=== PATIENT | female | born 1965 | race Caucasian/White ===

== ENCOUNTER 2018-07-25 12:02 | Observation (INO) ==
--- NOTE | 2018-07-25 12:47 | Emergency Department Note ---
Disposition Clinical Impression: Common bile duct dilatation Abdominal pain Qualifiers: Abdominal location: right upper quadrant Qualified Code(s): R10.11 - Right upper quadrant pain Disposition: Admitted As Inpatient Condition: Good Abdominal Pain HPI - General Chief Complaint: ED Abdominal Pain Stated Complaint: gallbladder issues Time Seen by Provider: 07/25/18 12:10 Source: patient, family Mode of arrival: ambulatory Limitations: no limitations Vital Signs Reviewed: Yes - History of Present Illness HPI Narrative: Ms. Desir is a 53yof w. hx of gastric bypass surgery presenting to ED c/o RUQ/epigastric pain. pt reports she started having epigastic/RUQ pain that wrapped around to her R flank last Wednesday (07/20) a/w epigastric bloating, nausea, increased flatulence, and some loose, leigh/shabazz-colored stools. she reports that she was seen at [facility] on Monday 07/23 and had a non-diagnostic CT scan of her abd, was recommended to have a RUQ ultrasound for better visualization of the liver/gallbladder. she notes while she was in bed last night she had some chest pressure that radiated to her L jaw with an increase in nausea and some "claminess," denies SOB or palpitations, says this pain lasted about 10min and then she fell asleep, says that she is having some pain in her L scapular area now. Pt Subjective Complaint: abdominal pain Onset (ago): day(s) (5) Consistency: constant, Worsening Location: RUQ, epigastric, R flank Pain Severity: moderate Pain Scale: 4 Quality: cramping, sharp Radiation: R flank Improves with: nothing Worsens with: eating Associated symptoms: Reports: nausea, diarrhea, chills, constipation. Denies: vomiting, fever, dysuria, hematochezia, melena, hematuria Treatments prior to arrival: other (phenergan suppository) - Related Data Home Medications Medication Instructions Recorded Confirmed Bupropion HCl [Wellbutrin Xl] 300 mg PO DAILY 07/25/18 07/25/18 Escitalopram [Lexapro] 20 mg PO DAILY 07/25/18 07/25/18 Levofloxacin [Levaquin] 750 mg PO DAILY 07/25/18 07/25/18 Montelukast [Singulair] 10 mg PO DAILY 07/25/18 07/25/18 OxyCODONE/APAP 5/325 [Percocet 1 each PO Q6HR PRN 07/25/18 07/25/18 5/325 MG] Promethazine HCl [Phenadoz] 25 mg RC TID PRN 07/25/18 07/25/18 Propranolol [Inderal] 20 mg PO DAILY PRN 07/25/18 07/25/18 clonazePAM [Clonazepam] 1 mg PO HS 07/25/18 07/25/18 Allergies Allergy/AdvReac Type Severity Reaction Status Date / Time clarithromycin [From Biaxin] Allergy Rash Verified 07/25/18 09:57 Review of Systems: As Per HPI Constitutional: Reports: other (claminess). Denies: fever Cardiovascular: Reports: chest pain (pressure x 10min). Denies: palpitations, dyspnea on exertion Respiratory: Denies: cough, dyspnea, wheezes Gastrointestinal: Reports: abdominal pain, nausea, diarrhea (acholic), constipation, other (belching, flatulence). Denies: vomiting Genitourinary: Denies: urgency, dysuria, frequency, hematuria Musculoskeletal: Reports: other (L scapular pain) Integumentary: Denies: rash, lesions Neurological: Reports: headache. 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 Psychiatric history: Reports: depression - Social History Smoking status: Light tobacco smoker Alcohol use: Reports: occasionally Drug use: Reports: none Physical Exam - General General appearance: alert Course Vital Signs Temperature 97.5 F L 07/25/18 12:07 Pulse Rate 87 07/25/18 12:07 Respiratory Rate 18 07/25/18 12:07 Blood Pressure 139/79 07/25/18 12:07 O2 Sat by Pulse Oximetry 98 07/25/18 12:07 Temperature 98.2 F 07/26/18 06:37 Pulse Rate 55 07/26/18 06:37 Respiratory Rate 15 07/26/18 06:37 Blood Pressure 98/64 07/26/18 06:37 O2 Sat by Pulse Oximetry 98 07/26/18 06:37 Oxygen Delivery Oxygen Delivery Room Air Abdominal Pain - Lab Data Result diagrams: 07/26/18 04:35 07/26/18 04:35 Lab Results 07/25/18 07/25/18 07/25/18 Range/Units 12:25 12:57 12:57 WBC 7.8 (4.3-11.1) K/mcL RBC 4.92 (3.82-4.97) M/mcL Hgb 15.3 (11.5-15.4) g/dL Hct 46.6 H (35.3-44.9) % MCV 94.7 (83.0-100.0) fL MCH 31.1 (28.0-33.3) pg MCHC 32.8 (31.6-35.5) g/dL RDW 12.4 (11.5-14.5) % Plt Count 255 (140-400) K/mcL MPV 10.5 (9.4-12.4) fL Immature Gran % 0.3 (0-4) % Seg Neutrophils % 72.2 % Lymphocytes % 17.5 % Monocytes % 7.6 % Eosinophils % 1.9 % Basophils % 0.5 % Neutrophils # 5.6 (1.6-8.9) K/mcL Lymphocytes # 1.4 (0.6-4.6) K/mcL Monocytes # 0.6 (0.0-1.3) K/mcL Eosinophils # 0.2 (0.0-0.6) K/mcL Basophils # 0.0 (0.0-0.2) K/mcL Sodium 140 (136-145) mEq/L Potassium 3.4 L (3.5-5.1) mEq/L Chloride 106 (98-107) mEq/L Carbon Dioxide 28 (23-29) mEq/L BUN 10 (6-20) mg/dL Creatinine 0.68 (0.60-1.20) mg/dL Est GFR ( Amer) > 60 (> 60) Est GFR (Non-Af Amer) > 60 (> 60) BUN/Creatinine Ratio 15 (6-26) Glucose 80 (70-105) mg/dL Calculated Osmolality 288 (280-300) Calcium 9.8 (8.6-10.3) mg/dL Total Bilirubin 0.4 (0.3-1.0) mg/dL Direct Bilirubin 0.1 (0.0-0.2) mg/dL Indirect Bilirubin 0.3 (0.0-1.2) mg/dL AST 20 (13-39) Units/L ALT 17 (7-52) Units/L Alkaline Phosphatase 71 (34-104) Units/L Serum Total Protein 7.1 (6.4-8.9) g/dL Albumin 4.4 (3.5-5.7) g/dL Globulin 2.7 (2.4-3.5) g/dL Albumin/Globulin Ratio 1.6 (1.1-2.2) Lipase 28 (11-82) Units/L Urine Color Yellow (Yellow) Urine Clarity Cloudy A (Clear) Urine pH 6.0 (5.0-8.0) pH Units Ur Specific [place] 1.024 (1.010-1.025) Urine Protein Negative (Neg-Trace) mg/dL Urine Glucose (UA) Normal (Normal) mg/dL Urine Ketones Trace H (Negative) mg/dL Urine Blood Negative (Negative) Urine Nitrite Negative (Negative) Urine Bilirubin Negative (Negative) Urine Urobilinogen Normal (Normal) mg/dL Ur Leukocyte Esterase Moderate H (Negative) Urine Microscopic RBC 3-5 H (0-3) per hpf Urine Microscopic WBC 15-30 H (0-3) per hpf Ur Squamous Epith Cells Many H (None-Few) per lpf Urine Bacteria None Seen (None-Few) per hpf Hyaline Casts None Seen (None-Few) per lpf Ur Culture Indicated? NO. A (NO)
[2018-07-25] MEDS ORDERED: 0.9 % Sodium Chloride 1,000 ML IVC ONE (13:16)
[2018-07-25] MEDS ORDERED: Ondansetron 4 MG/2 ML VIAL IVP ONE (13:16)
[2018-07-25] MEDS ORDERED: Hyoscyamine 0.5 MG/ML MLS IVP ONE (13:25)
--- NOTE | 2018-07-25 13:28 | Emergency Department Note ---
Disposition Clinical Impression: Common bile duct dilatation Abdominal pain Qualifiers: Abdominal location: right upper quadrant Qualified Code(s): R10.11 - Right upper quadrant pain Disposition: Admitted As Inpatient Condition: Good Time of Disposition: 16:08 Abdominal Pain HPI - General Chief Complaint: ED Abdominal Pain Stated Complaint: gallbladder issues Time Seen by Provider: 07/25/18 12:10 Source: patient Mode of arrival: ambulatory Limitations: no limitations Nursing Notes Reviewed: Yes Vital Signs Reviewed: Yes - History of Present Illness HPI Narrative: 53-year-old female persists for evaluation of "gallbladder issues". Patient states that she has had pain for the past 4 days. Notes to be in epigastrium as well as right upper quadrant with some radiation to the back. States she does work at [employer] and was evaluated in the ED and had a CAT scan. Patient states that her symptoms are not improved. She notes pain that does correlate postprandial. Denies any fevers. Notes some nausea without vomiting. Describes some diarrhea with some acholic stools. Patient denies any urinary symptoms. Patient does have a history of gastric bypass. Pt Subjective Complaint: abdominal pain Location: RUQ, epigastric, R flank Pain Severity: moderate Pain Scale: 4 Quality: cramping, sharp Improves with: nothing Worsens with: eating Associated symptoms: Reports: nausea, diarrhea, chills, constipation. Denies: vomiting, fever, dysuria, hematochezia, melena, hematuria - Related Data Allergies Allergy/AdvReac Type Severity Reaction Status Date / Time clarithromycin [From Biaxin] Allergy Rash Verified 07/25/18 09:57 All systems ED: reviewed and negative except as stated. Constitutional: Denies: fever Cardiovascular: Denies: chest pain Respiratory: Denies: cough, dyspnea Gastrointestinal: Reports: abdominal pain, nausea, diarrhea. 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 Psychiatric history: Reports: depression - Social History Smoking status: Light tobacco smoker Alcohol use: Reports: occasionally Drug use: Reports: none Physical Exam - General Limitations: no limitations General appearance: alert, in no apparent distress - Head Head exam: atraumatic, normocephalic, normal inspection - Eye Eye exam: Present: normal appearance, PERRL, EOMI - ENT ENT exam: normal exam, normal oropharynx, mucous membranes moist - Neck Neck exam: Present: normal inspection - Chest Chest inspection: Present: normal inspection, symmetric chest wall rise - Respiratory Respiratory exam: Present: normal lung sounds bilaterally. Absent: respiratory distress - Cardiovascular Cardiovascular exam: Present: regular rate, normal rhythm. Absent: systolic murmur - Abdominal Exam Abdominal exam: Present: soft, tenderness (Right upper quadrant tenderness without rebound.) - Extremities Exam Extremities exam: Present: normal inspection. Absent: pedal edema - Expanded Lower Extremity Exam Neurovascular/Tendon exam: Present: normal capillary refill - Back Exam Back exam: Present: normal inspection - Neurological Exam Neurological exam: Present: alert, oriented X3, CN II-XII intact - Skin Skin exam: Present: warm, dry, intact, normal color Course Course Narrative: Patient seen and examined. Patient will become her ultrasound and abdominal labs. Symptomatic treatment. Disposition pending. - Reevaluation(s) Reevaluation #1: Patient was updated on plan of care. Given the patient's dilated common bile duct patient would likely need an additional testing including an MRI. We will page the GI doctor regarding this patient's findings. Time: 15:59 - Consultations Consultation #1: Spoke with GI and consult was placed. Time: 16:08 Vital Signs Temperature 97.5 F L 07/25/18 12:07 Pulse Rate 87 07/25/18 12:07 Respiratory Rate 18 07/25/18 12:07 Blood Pressure 139/79 07/25/18 12:07 O2 Sat by Pulse Oximetry 98 07/25/18 12:07 Temperature 97.5 F L 07/25/18 12:07 Pulse Rate 87 07/25/18 12:07 Respiratory Rate 18 07/25/18 12:07 Blood Pressure 139/79 07/25/18 12:07 O2 Sat by Pulse Oximetry 98 07/25/18 12:07 Oxygen Delivery Oxygen Delivery Room Air Abdominal Pain - MDM Narrative Medical decision making narrative: Patient presents for biliary colic. Patient had gallbladder findings concerning for choledocholithiasis. Patient's labs are clinically unremarkable. Given the patient's ultrasound findings the patient will likely need additional evaluation and will be admitted to the hospitalist service with GI consult. Patient was updated on this plan of care. Patient was requiring escalating doses of pain medicine. Patient would likely need additional evaluation to ensure there is no signs of obstruction. MRI was aware an MRCP was ordered in the ED however they said it would take several hours before they would be able to complete the study. - Lab Data Lab results reviewed: Yes I reviewed the patient's lab results. Result diagrams: 07/25/18 12:57 07/25/18 12:57 Lab Results 07/25/18 07/25/18 07/25/18 Range/Units 12:25 12:57 12:57 WBC 7.8 (4.3-11.1) K/mcL RBC 4.92 (3.82-4.97) M/mcL Hgb 15.3 (11.5-15.4) g/dL Hct 46.6 H (35.3-44.9) % MCV 94.7 (83.0-100.0) fL MCH 31.1 (28.0-33.3) pg MCHC 32.8 (31.6-35.5) g/dL RDW 12.4 (11.5-14.5) % Plt Count 255 (140-400) K/mcL MPV 10.5 (9.4-12.4) fL Immature Gran % 0.3 (0-4) % Seg Neutrophils % 72.2 % Lymphocytes % 17.5 % Monocytes % 7.6 % Eosinophils % 1.9 % Basophils % 0.5 % Neutrophils # 5.6 (1.6-8.9) K/mcL Lymphocytes # 1.4 (0.6-4.6) K/mcL Monocytes # 0.6 (0.0-1.3) K/mcL Eosinophils # 0.2 (0.0-0.6) K/mcL Basophils # 0.0 (0.0-0.2) K/mcL Sodium 140 (136-145) mEq/L Potassium 3.4 L (3.5-5.1) mEq/L Chloride 106 (98-107) mEq/L Carbon Dioxide 28 (23-29) mEq/L BUN 10 (6-20) mg/dL Creatinine 0.68 (0.60-1.20) mg/dL Est GFR ( Amer) > 60 (> 60) Est GFR (Non-Af Amer) > 60 (> 60) BUN/Creatinine Ratio 15 (6-26) Glucose 80 (70-105) mg/dL Calculated Osmolality 288 (280-300) Calcium 9.8 (8.6-10.3) mg/dL Total Bilirubin 0.4 (0.3-1.0) mg/dL Direct Bilirubin 0.1 (0.0-0.2) mg/dL Indirect Bilirubin 0.3 (0.0-1.2) mg/dL AST 20 (13-39) Units/L ALT 17 (7-52) Units/L Alkaline Phosphatase 71 (34-104) Units/L Serum Total Protein 7.1 (6.4-8.9) g/dL Albumin 4.4 (3.5-5.7) g/dL Globulin 2.7 (2.4-3.5) g/dL Albumin/Globulin Ratio 1.6 (1.1-2.2) Lipase 28 (11-82) Units/L Urine Color Yellow (Yellow) Urine Clarity Cloudy A (Clear) Urine pH 6.0 (5.0-8.0) pH Units Ur Specific [place] 1.024 (1.010-1.025) Urine Protein Negative (Neg-Trace) mg/dL Urine Glucose (UA) Normal (Normal) mg/dL Urine Ketones Trace H (Negative) mg/dL Urine Blood Negative (Negative) Urine Nitrite Negative (Negative) Urine Bilirubin Negative (Negative) Urine Urobilinogen Normal (Normal) mg/dL Ur Leukocyte Esterase Moderate H (Negative) Urine Microscopic RBC 3-5 H (0-3) per hpf Urine Microscopic WBC 15-30 H (0-3) per hpf Ur Squamous Epith Cells Many H (None-Few) per lpf Urine Bacteria None Seen (None-Few) per hpf Hyaline Casts None Seen (None-Few) per lpf Ur Culture Indicated? NO. A (NO) - Radiology Data Radiology results reviewed: Yes I reviewed the patient's radiology results. Gallbladder Ultrasound 07/25/18 13:17 IMPRESSION: Hepatomegaly with mild increased echotexture which may be related to hepatic steatosis. Mildly distended common bile duct measuring 8 mm. If any clinical concern for choledocholithiasis or biliary obstruction, this would be best assessed in a noninvasive fashion with MRCP. D/ / Jhonny Lester MD / Jhonny Lester MD Interpreting Provider: Jhonny Lester MD - EKG Data EKG attestation: Yes I reviewed and interpreted this EKG. EKG shows normal: sinus rhythm Rate: normal Rhythm: NSR [place]/QRS: normal T wave inversions noted in: aVR, v1 Interpretation: no acute changes, nonspecific ST-T wave changes [facility] - [place] Situation: Demographics Background: Presenting Complaint Assessment: Vital Signs, Course and respsone to treatment, Patient/Family Expectation Recommendation: Barrier(s) to disposition, Recommendation based on pending stud ies, treatments, or consults [facility] Report Given to: Dr. Peg Baeza Repor Time: 15:59 Attestation Statement - Attestation Attestation: I examined this patient and my medical decision-making was reviewed with the Resident Physician. I agree with the documented findings, disposition and treatment plan as described except to the extent set forth below. Findings consistent with possible dysfunctional gallbladder. There was findings of dilated common bile duct. We will obtain MRCP, admit for pain control and GI consultation. Patient may require HIDA scan if MRCP is negative in conjunction with gastroenterology consultation. Non-peritoneal abdominal examination at time of admission
[2018-07-25 13:32] LABS: Bilirubin,Urine Negative (Negative); Blood,Urine Negative (Negative); Clarity,Urine Cloudy (Clear); Color,Urine Yellow (Yellow); Glucose,Urine (UA) Normal (Normal); Ketones,Urine Trace mg/dL (Negative); Leukocyte Esterase,Urine Moderate (Negative); Nitrite,Urine Negative (Negative); Protein,Urine Negative (Neg-Trace); Specific Gravity,Urine 1.024 (1.010-1.025); Urobilinogen,Urine Normal (Normal)
[2018-07-25 13:34] LABS: Basophils % 0.5 %; Eosinophils # 0.2 K/mcL (0.0-0.6); Eosinophils % 1.9 %; Hematocrit 46.6 % (35.3-44.9); Hemoglobin 15.3 g/dL (11.5-15.4); Immature Granulocytes % 0.3 % (0-4); Lymphocytes # 1.4 K/mcL (0.6-4.6); Lymphocytes % 17.5 %; Mean Corpuscular HGB Conc 32.8 g/dL (31.6-35.5); Mean Corpuscular Hemoglobin 31.1 pg (28.0-33.3); Mean Corpuscular Volume 94.7 fL (83.0-100.0); Mean Platelet Volume 10.5 fL (9.4-12.4); Monocytes # 0.6 K/mcL (0.0-1.3); Monocytes % 7.6 %; Neutrophils # 5.6 K/mcL (1.6-8.9); Platelet Count 255 K/mcL (140-400); Red Blood Count 4.92 M/mcL (3.82-4.97); Red Cell Distribution Width 12.4 % (11.5-14.5); Segmented Neutrophils % 72.2 %
[2018-07-25 13:36] LABS: Bacteria,Urine None Seen per hpf (None-Few); Hyaline Casts,Urine None Seen per lpf (None-Few); Squamous Epithelial Cell,Urine Many per lpf (None-Few); WBC,Urine 15-30 per hpf (0-3)
[2018-07-25 13:48] LABS: Alanine Aminotransferase 17 Units/L (7-52); Albumin 4.4 g/dL (3.5-5.7); Albumin/Globulin Ratio 1.6 (1.1-2.2); Alkaline Phosphatase 71 Units/L (34-104); Aspartate Amino Transferase 20 Units/L (13-39); BUN/Creatinine Ratio 15 (6-26); Bilirubin,Direct 0.1 mg/dL (0.0-0.2); Bilirubin,Indirect 0.3 mg/dL (0.0-1.2); Bilirubin,Total 0.4 mg/dL (0.3-1.0); Blood Urea Nitrogen 10 mg/dL (6-20); Calcium 9.8 mg/dL (8.6-10.3); Carbon Dioxide 28 mEq/L (23-29); Chloride 106 mEq/L (98-107); Globulin 2.7 g/dL (2.4-3.5); Glucose 80 mg/dL (70-105); Lipase 28 Units/L (11-82); Osmolality,Calculated 288 (280-300); Potassium 3.4 mEq/L (3.5-5.1); Sodium 140 mEq/L (136-145); Total Protein 7.1 g/dL (6.4-8.9); eGFR For Non-African Americans > 60 (> 60)
[2018-07-25] MEDS ORDERED: 0.9 % Sodium Chloride 1,000 ML IVC SCH (16:00)
[2018-07-25] MEDS ORDERED: *HR* FentaNYL (PF) 100 MCG/2 ML VIAL IVP ONE (16:07)
--- NOTE | 2018-07-25 17:13 | Internal Med History&Physical ---
<Tenzin Ford - Last Filed: 07/25/18 17:52> Date of Encounter: 07/25/18 Time of Encounter: 17:04 Internal Medicine - H&P: HPI Chief complaint: Epigastric / RUQ pain Admitted From: Home Plans for Post Hospital Care: Home History of present illness: Ms. Desir is a 53 year old female with PMHx gastric bypass surgery (2004), anxiety, migraines, chronic sinusitis who presents with epigastric/ RUQ abdomina l pain for the past 5 days. States that she has pain in her gallbladder. Notes pain is worse immediately after meals, and resolves when she does not eat. Pain rated 8-9/10 at worst, and described as sharp, stabbing pain that she feels in her RUQ of her abdomen and radiates around her back. Associated with nausea, bloating, and a few episodes of loose, light-colored stools. Pain intensified as of two days ago, so much so that she began to take her percocet (normally used for migraines) to alleviate abdominal pain. 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 ER at [place] noted she may have an 'inflamed gallbladder with distended duct.' Recommended follow-up with ultrasound, which pt was unable to complete. Pain has persisted until today. Currently notes abdominal pain that radiates around the right side to the back, and left shoulder pain behind the shoulder blade. Associated with nausea, and worsened by eating or drinking anything. Managed with percocet for pain and phenergan for nausea to this point. Denies fevers/chills, dizziness, lightheadedness, headache, chest pain, SOB, vomiting, diarrhea, dysuria, hematuria. Vitals stable in the ED CBC: wnl CMP: wnl Lipase: wnl UA: benign U/S Gallbladder: Mildly distended common bile duct - 8mm; Hepatomegaly with mild increased echotexture EKG: NSR with nonspecific ST-T wave changes Past Med Surg Social Fam HX - Past Medical History Attestation: Yes The following information was validated with the patient. Source: patient Medical history: migraine Additional medical history: sinus surgery due to chronic sinusitis Psychiatric history: anxiety, depression - Past Surgical History Additional surgical history: septum, gastric bypass, rt knee scope, tubal d&c, tonsillectomy and adenoidectomy, csection x 2 - Social History Smoking Status: Light tobacco smoker Smokeless Tobacco Status: No Alcohol use: occasionally Drug use: none Occupational status: employed Internal Medicine - H&P: Meds Bupropion HCl [Wellbutrin Xl] 300 mg PO DAILY 07/25/18 [History] Escitalopram [Lexapro] 20 mg PO DAILY 07/25/18 [History] Levofloxacin [Levaquin] 750 mg PO DAILY 07/25/18 [History] Montelukast [Singulair] 10 mg PO DAILY 07/25/18 [History] OxyCODONE/APAP 5/325 [Percocet 5/325 MG] 1 each PO Q6HR PRN 07/25/18 [History] Promethazine HCl [Phenadoz] 25 mg RC TID PRN 07/25/18 [History] Propranolol [Inderal] 20 mg PO DAILY PRN 07/25/18 [History] clonazePAM [Clonazepam] 1 mg PO HS 07/25/18 [History] Allergy/AdvReac Type Severity Reaction Status Date / Time clarithromycin [From Biaxin] Allergy Rash Verified 07/25/18 09:57 All Systems PM: A 10-system review of systems was performed and is negative for pertinent findings except as documented above in the HPI. - Constitutional Constitutional: no chills, no fatigue, no fever(s) - EENT Eyes: no blurry vision, no change in vision - Cardiovascular Cardiovascular ROS IM: no chest pain, no lightheadedness, no palpitations, no syncope - Respiratory Respiratory: no cough, no dyspnea - Gastrointestinal Gastrointestinal: abdominal pain, cramping, no coffee ground emesis, no constipation, no diarrhea, no hematemesis, no vomiting - Genitourinary Genitourinary: no dysuria, no flank pain, no hematuria - Musculoskeletal Additional comments: Pain behind left shoulder blade - Integumentary Integumentary IM: no pruritus, no rash, no jaundice - Neurological Neurological ROS: no headache(s), no weakness - Constitutional Vitals: Temp Pulse Resp BP Pulse Ox 97.5 F L 73 18 121/66 98 07/25/18 12:07 07/25/18 16:34 07/25/18 16:34 07/25/18 16:34 07/25/18 16:34 General appearance: Present: mild distress, A&O X 3, answers questions appropriately Exam: GEN: AOx3; Mild distress secondary to pain HEENT: Atraumatic, normocephalic; No scleral icterus; EOMI; No anterior cervical lymphadenopathy CARDIO: RRR; no murmurs, rubs, gallops RESP: CTAB, no wheezes, rales, rhonchi ABD: TTP in RUQ; negative kaiser's sign; Bowel sounds present; non-distended; soft NEURO: AOx3; CN 2-12 intact; No focal deficits EXT: 5/5 strength bilaterally SKIN: No evidence of jaundice Internal Med - H&P Results - Labs CBC & Chem 7: 07/25/18 12:57 07/25/18 12:57 Labs: Short CBC 07/25/18 Range/Units 12:57 WBC 7.8 (4.3-11.1) K/mcL Hgb 15.3 (11.5-15.4) g/dL Hct 46.6 H (35.3-44.9) % Plt Count 255 (140-400) K/mcL Neutrophils # 5.6 (1.6-8.9) K/mcL BMP 07/25/18 12:57 Sodium 140 Potassium 3.4 L Chloride 106 Carbon Dioxide 28 BUN 10 Creatinine 0.68 Glucose 80 Calcium 9.8 Liver Function 07/25/18 Range/Units 12:57 Total Bilirubin 0.4 (0.3-1.0) mg/dL Direct Bilirubin 0.1 (0.0-0.2) mg/dL AST 20 (13-39) Units/L ALT 17 (7-52) Units/L Alkaline Phosphatase 71 (34-104) Units/L Albumin 4.4 (3.5-5.7) g/dL Urine 07/25/18 Range/Units 12:25 Urine Color Yellow (Yellow) Urine Clarity Cloudy A (Clear) Urine pH 6.0 (5.0-8.0) pH Units Ur Specific [place] 1.024 (1.010-1.025) Urine Protein Negative (Neg-Trace) mg/dL Urine Glucose (UA) Normal (Normal) mg/dL - Impressions ITS Impressions Gallbladder Ultrasound 07/25/18 13:17 IMPRESSION: Hepatomegaly with mild increased echotexture which may be related to hepatic steatosis. Mildly distended common bile duct measuring 8 mm. If any clinical concern for choledocholithiasis or biliary obstruction, this would be best assessed in a noninvasive fashion with MRCP. D/ / Jhonny Lester MD / Jhonny Lester MD Interpreting Provider: Jhonny Lester MD - Assessment and plan (1) Abdominal pain Current Visit: Yes Status: Acute Assessment and plan: 5 days RUQ, epigastric abdominanl pain associated with radiation to back and referred pain to the left shoulder Pain worse after meals, and improves with bowel rest; Associated with nausea, light-colored stools PE: RUQ tender to palpation; Kaiser's sign negative CBC, CMP, Lipase: wnl Gallbladder U/S: Mildly Distended Bile Duct measuring 8mm - suggestive of choledocholithiasis PLAN: NPO IVF Pain Control MRCP to evaluate for choledocholithiasis Qualifiers: Abdominal location: right upper quadrant Qualified Code(s): R10.11 - Right upper quadrant pain (2) Anxiety and depression Current Visit: No Status: Chronic Assessment and plan: Cont home meds - Clonazepam, Wellbutrin, Lexapro (3) Common bile duct dilatation Current Visit: Yes Status: Acute Assessment and plan: US Gallbladder: Mildly distended common bile duct measuring 8mm F/U GI Consult - possible MRCP - Time Spent With Patient Total time spent is greater than 50% in coordination of care (as documented) at patient's floor/unit and/or counseling patient: less than 15 minutes <Adams Campbell - Last Filed: 07/27/18 12:51> Internal Medicine - H&P: HPI History of present illness: Ms. Desir is a 53 year old female Past Med Surg Social Fam HX - Family History Father Hx Family Cancer: Yes (Lung CA) All Systems PM: A 10-system review of systems was performed and is negative for pertinent findings except as documented above in the HPI. - Constitutional Vitals: Temp Pulse Resp BP Pulse Ox 97.7 F 67 15 98/60 92 07/27/18 10:33 07/27/18 10:33 10/31/18 10:33 07/27/18 10:33 07/27/18 10:33 Internal Med - H&P Results - Labs CBC & Chem 7: 07/27/18 04:50 07/27/18 04:50 Labs: Short CBC 07/27/18 Range/Units 04:50 WBC 4.8 (4.3-11.1) K/mcL Hgb 12.9 (11.5-15.4) g/dL Hct 40.5 (35.3-44.9) % Plt Count 222 (140-400) K/mcL Neutrophils # 3.2 (1.6-8.9) K/mcL BMP 07/27/18 04:50 Sodium 142 Potassium 3.9 Chloride 111 H Carbon Dioxide 28 BUN 7 Creatinine 0.70 Glucose 84 Calcium 8.9 - Impressions ITS Impressions Gallbladder Ultrasound 07/25/18 13:17 IMPRESSION: Hepatomegaly with mild increased echotexture which may be related to hepatic steatosis. Mildly distended common bile duct measuring 8 mm. If any clinical concern for choledocholithiasis or biliary obstruction, this would be best assessed in a noninvasive fashion with MRCP. D/ / Jhonny Lester MD / Jhonny Lester MD Interpreting Provider: Jhonny Lester MD Abdomen MRI 07/25/18 15:45 IMPRESSION: No evidence of choledocholithiasis. Common bile duct is within normal limits for size. No acute findings. D/ / 07/25/2018 21:06:13 Mj Harper MD / jeane Interpreting Provider: Mj Harper MD Bile Acid Absorption NM 07/26/18 14:45 IMPRESSION: 1. Normal hepatobiliary scan. D/ / Edison Piña MD / Edison Piña MD Interpreting Provider: Edison Piña MD - Assessment and plan (1) Abdominal pain Current Visit: Yes Status: Acute Qualifiers: Abdominal location: right upper quadrant Qualified Code(s): R10.11 - Right upper quadrant pain (2) Common bile duct dilatation Current Visit: Yes Status: Acute (3) Gastric ulcer Current Visit: Yes Status: Acute Qualifiers: Gastric ulcer chronicity: acute Gastric ulcer complication status: without hemorrhage or perforation Qualified Code(s): K25.3 - Acute gastric ulcer without hemorrhage or perforation - Time Spent With Patient Total time spent is greater than 50% in coordination of care (as documented) at patient's floor/unit and/or counseling patient: - Attending Attestation I examined this patient and my medical decision-making was reviewed with the Resident Physician. I agree with the documented findings, disposition and treatment plan as described except to the extent set forth below.
[2018-07-25] MEDS ORDERED: Ibuprofen 400 MG TABLET PO PRN (17:45)
[2018-07-25] MEDS ORDERED: Naloxone 0.4 MG/ML INJ IVP PRN (17:45)
[2018-07-25] MEDS: 0.9 % Sodium Chloride 1,000 ML IVC SCH (21:34)
[2018-07-25] MEDS: *HR* OxyCODONE Immed Rel 5 MG TABLET PO PRN (21:34)
[2018-07-25] MEDS: clonazePAM 0.5 MG TABLET PO SCH (21:35)
[2018-07-26] MEDS ORDERED: Acetaminophen 325 MG TABLET PO PRN (04:56)
[2018-07-26 05:27] LABS: Basophils % 0.6 %; Eosinophils # 0.2 K/mcL (0.0-0.6); Eosinophils % 4.2 %; Immature Granulocytes % 0.2 % (0-4); Lymphocytes # 1.4 K/mcL (0.6-4.6); Lymphocytes % 26.9 %; Mean Corpuscular HGB Conc 32.8 g/dL (31.6-35.5); Mean Corpuscular Hemoglobin 31.3 pg (28.0-33.3); Mean Corpuscular Volume 95.5 fL (83.0-100.0); Mean Platelet Volume 10.2 fL (9.4-12.4); Monocytes # 0.5 K/mcL (0.0-1.3); Monocytes % 10.2 %; Neutrophils # 2.9 K/mcL (1.6-8.9); Platelet Count 224 K/mcL (140-400); Red Blood Count 4.19 M/mcL (3.82-4.97); Red Cell Distribution Width 12.5 % (11.5-14.5); Segmented Neutrophils % 57.9 %
[2018-07-26 05:31] LABS: Hemoglobin 13.1 g/dL (11.5-15.4)
[2018-07-26 05:33] LABS: BUN/Creatinine Ratio 10 (6-26); Blood Urea Nitrogen 6 mg/dL (6-20); Calcium 8.9 mg/dL (8.6-10.3); Carbon Dioxide 25 mEq/L (23-29); Chloride 111 mEq/L (98-107); Glucose 82 mg/dL (70-105); Osmolality,Calculated 293 (280-300); Potassium 4.2 mEq/L (3.5-5.1); Sodium 143 mEq/L (136-145); eGFR For Non-African Americans > 60 (> 60)
[2018-07-26] MEDS: 0.9 % Sodium Chloride 1,000 ML IVC SCH ×3 (06:43→23:00)
[2018-07-26] MEDS: BuPROPion XL (24 HR) 150 MG TABLET PO SCH (07:40)
--- NOTE | 2018-07-26 10:08 | Internal Med Progress Note ---
<FordTenzin - Last Filed: 07/26/18 13:45> Hospitalist Progress Note - Encounter Date of Encounter: 07/26/18 Time of Encounter: 10:04 - Subjective Interval History: Pt seen and examined at bedside resting comfortably in no acute distress. Remains NPO awaiting GI recommendations. Notes mild nausea and mild abdominal discomfort, but states that since she has not eaten today, she has not had overt pain. Pain well controlled as of now. Denies fevers/chills, headaches, vision changes, SOB, chest pain, vomiting, diarrhea, dysuria, hematuria. - Exam Vitals: Temp Pulse Resp BP Pulse Ox 97.5 F L 68 15 104/68 96 07/26/18 09:57 07/26/18 09:57 07/26/18 09:57 07/26/18 09:57 07/26/18 09:57 Exam: GEN: AOx3, NAD, Pleasant HEENT: Atraumatic, Normocephalic, EOMI, Full ROM, No cervical lymphadenopathy CARDIO: RRR, No murmurs, rubs, gallops PULM: CTAB, no wheezes, rales, rhonchi ABD: Tender to palpation in RUQ; Kaiser's sign negative; Soft, non-distended; No guarding, rebound tenderness NEURO: AOx3; CN 2 - 12 intact; No focal deficits EXT: Normal strength upper and lower extremities - Assessment and Plan (1) Abdominal pain Current Visit: Yes Status: Acute Assessment and Plan: Presented with 5 days RUQ, epigastric abdominanl pain associated with radiation to back and referred pain to the left shoulder Pain worse after meals, and improves with bowel rest; Associated with nausea, light-colored stools PE: RUQ tender to palpation; Kaiser's sign negative CBC, CMP, Lipase: wnl Gallbladder U/S: Mildly Distended Bile Duct measuring 8mm MRCP: No evidence of choledocholithiasis; Common Bile Duct within normal limits PLAN: GI recomendations appreciated F/U Endoscopy, HIDA Scan Will begin PPI today Advance diet as tolerated IVF Pain Control (2) Anxiety and depression Current Visit: No Status: Chronic Assessment and Plan: Cont home meds - Clonazepam, Wellbutrin, Lexapro - Time Spent with Patient Total time spent is greater than 50% in coordination of care (as documented) at patient's floor/unit and/or counseling patient: less than 15 minutes Plan of Care Discussed with: patient Internal Medicine: Result - Labs CBC & Chem 7: 07/26/18 04:35 07/26/18 04:35 Labs: Short CBC 07/25/18 07/26/18 Range/Units 12:57 04:35 WBC 7.8 5.0 (4.3-11.1) K/mcL Hgb 15.3 13.1 D (11.5-15.4) g/dL Hct 46.6 H 40.0 (35.3-44.9) % Plt Count 255 224 (140-400) K/mcL Neutrophils # 5.6 2.9 (1.6-8.9) K/mcL BMP 07/25/18 07/26/18 12:57 04:35 Sodium 140 143 Potassium 3.4 L 4.2 Chloride 106 111 H Carbon Dioxide 28 25 BUN 10 6 Creatinine 0.68 0.63 Glucose 80 82 Calcium 9.8 8.9 Liver Function 07/25/18 Range/Units 12:57 Total Bilirubin 0.4 (0.3-1.0) mg/dL Direct Bilirubin 0.1 (0.0-0.2) mg/dL AST 20 (13-39) Units/L ALT 17 (7-52) Units/L Alkaline Phosphatase 71 (34-104) Units/L Albumin 4.4 (3.5-5.7) g/dL Urine 07/25/18 Range/Units 12:25 Urine Color Yellow (Yellow) Urine Clarity Cloudy A (Clear) Urine pH 6.0 (5.0-8.0) pH Units Ur Specific [place] 1.024 (1.010-1.025) Urine Protein Negative (Neg-Trace) mg/dL Urine Glucose (UA) Normal (Normal) mg/dL - Impressions Impressions Gallbladder Ultrasound 07/25/18 13:17 IMPRESSION: Hepatomegaly with mild increased echotexture which may be related to hepatic steatosis. Mildly distended common bile duct measuring 8 mm. If any clinical concern for choledocholithiasis or biliary obstruction, this would be best assessed in a noninvasive fashion with MRCP. D/ / Jhonny Lester MD / Jhonny Lester MD Interpreting Provider: Jhonny Lester MD Abdomen MRI 07/25/18 15:45 IMPRESSION: No evidence of choledocholithiasis. Common bile duct is within normal limits for size. No acute findings. D/ / 07/25/2018 21:06:13 Mj Harper MD / jeane Interpreting Provider: Mj Harper MD Consult Discharge Plan - Plan Referrals: Gen Méndez DO [Primary Care Provider] - <Jose D Noyola - Last Filed: 07/26/18 14:52> Hospitalist Progress Note - Exam Vitals: Temp Pulse Resp BP Pulse Ox 97.5 F L 68 16 114/65 100 07/26/18 14:34 07/26/18 14:34 07/26/18 14:34 07/26/18 14:34 07/26/18 14:34 - Assessment and Plan (1) Gastric ulcer Current Visit: Yes Status: Acute Assessment and Plan: Patient underwent upper GI endoscopy today which showed a nonbleeding gastric ulcer and some esophageal erosions. Will place patient on PPI. (2) Abdominal pain Current Visit: Yes Status: Acute (3) Common bile duct dilatation Current Visit: Yes Status: Acute - Time Spent with Patient Total time spent is greater than 50% in coordination of care (as documented) at patient's floor/unit and/or counseling patient: Internal Medicine: Result - Labs CBC & Chem 7: 07/26/18 04:35 07/26/18 04:35 Labs: Short CBC 07/26/18 Range/Units 04:35 WBC 5.0 (4.3-11.1) K/mcL Hgb 13.1 D (11.5-15.4) g/dL Hct 40.0 (35.3-44.9) % Plt Count 224 (140-400) K/mcL Neutrophils # 2.9 (1.6-8.9) K/mcL BMP 07/26/18 04:35 Sodium 143 Potassium 4.2 Chloride 111 H Carbon Dioxide 25 BUN 6 Creatinine 0.63 Glucose 82 Calcium 8.9 - Impressions Impressions Gallbladder Ultrasound 07/25/18 13:17 IMPRESSION: Hepatomegaly with mild increased echotexture which may be related to hepatic steatosis. Mildly distended common bile duct measuring 8 mm. If any clinical concern for choledocholithiasis or biliary obstruction, this would be best assessed in a noninvasive fashion with MRCP. D/ / Jhonny Lester MD / Jhonny Lester MD Interpreting Provider: Jhonny Lester MD Abdomen MRI 07/25/18 15:45 IMPRESSION: No evidence of choledocholithiasis. Common bile duct is within normal limits for size. No acute findings. D/ / 07/25/2018 21:06:13 Mj Harper MD / jeane Interpreting Provider: Mj Harper MD - Attending Attestation I saw evaluated and examined this patient and my medical decision-making was reviewed with the Resident Physician, Tenzin Ford. I agree with the documented findings, disposition and treatment plan as described except to any changes set forth below. We independently had [id number] contact with the patient. Patient evaluated earlier today. Reported improvement in her pain she remains nothing by mouth. No new episodes of nausea or vomiting. On examination, mild tenderness in epigastric region and right upper quadrant. Heart sounds are normal. Breath sounds are also normal. Patient does appear little anxious. Acute abdominal pain: Appreciated GI input. No signs of cholecystitis or choledocholithiasis per MRCP and ultrasound of the abdomen. GI recommends HIDA scan. We will go ahead and order this. Gastric ulcer: Per EGD. Will place patient on PPI. Start clears. Advance as tolerated. Moderate risk for complications. <Tenzin Ford - Last Filed: 07/26/18 13:45> (1) Abdominal pain Qualifiers: Abdominal location: right upper quadrant Qualified Code(s): R10.11 - Right upper quadrant pain <Jose D Noyola - Last Filed: 07/26/18 14:52> (1) Gastric ulcer Qualifiers: Gastric ulcer chronicity: acute Gastric ulcer complication status: without hemorrhage or perforation Qualified Code(s): K25.3 - Acute gastric ulcer without hemorrhage or perforation (2) Abdominal pain Qualifiers: Abdominal location: right upper quadrant Qualified Code(s): R10.11 - Right upper quadrant pain
--- NOTE | 2018-07-26 11:32 | Gastroenterology Consult Note ---
<Dalton Reed - Last Filed: 07/26/18 11:30> Date of Encounter: 07/26/18 Time of Encounter: 10:30 - Assessment and plan (1) Abdominal pain Current Visit: Yes Status: Acute Assessment and plan: Pt with epigastric and RUQ pain. MRCP negative. Plan for EGD today to r/o esophagitis, gastritis, duodenitis, PUD, MW tear, or AVM. Keep patient NPO. Check HIDA scan. Start PPI. Qualifiers: Abdominal location: right upper quadrant Qualified Code(s): R10.11 - Right upper quadrant pain (2) Common bile duct dilatation Current Visit: Yes Status: Acute Assessment and plan: No dilation noted on RUQ US or MRCP. RUQ US showed CBD measuring 8 mm, no gallbladder wall thickening, stones, or pericholecystic fluid. MRCP showed CBD 6 mm, no filling defect seen. TB 0.4, AST 20, ALT 17, alk phos 71. (3) Gas pain Current Visit: Yes Status: Acute Assessment and plan: 1.) Avoid chewing gum or sucking on hard candies (especially sugarless gum or dietetic candies that contain sorbitol). 2.) Eliminate carbonated beverages and reduce foods containing high-fructose corn syrup from your diet. 3.) Avoid milk and milk products, such as soft cheeses 4.) Eat less gas-producing foods such as: Vegetables: brussel sprouts, broccoli, bagels, bananas, cabbage, cauliflower,cucumbers,carrots, celery and onion. Or when eating such foods, you may consider trying bdfa-uqv-cycfvys gas relief medicines, which may help breakdown the non-absorbable carbohydrates found in these foods. 5.) Exercise helps to stimulate the passage of gas through the digestive tract, consider walking. 6.) Consider trying cpcs-lyo-mfzdxce gas relief medicines such as Activated charcoal one tablet with meals or Beano 1-2 tablets or 5-10 drops with meals or Gas-X 1 tablet three times a day with meals or bismuth subsalicylate 524 mg three times a day with meals as needed. - Time Spent With Patient Total time spent is greater than 50% in coordination of care (as documented) at patient's floor/unit and/or counseling patient: GI History of Present Illness - Data of Consult Patient: new to practice Consult date: 07/26/18 Requesting Physician: Fede Ruvalcaba - Consult Narrative Reason for consult: Dilated CBD History of present illness: Ms. Desir is a 53 year old female with PMHx of gastric bypass surgery (2004), anxiety, migraines, chronic sinusitis who presents with epigastric/RUQ abdominal pain that started 5 days prior to admission. She reports pain is worse immediately after meals, and resolves when she does not eat. Pain rated 8-9/10 at worst, and described as sharp, stabbing pain that she feels in her RUQ of her abdomen and radiates around her back. Pain intensified two days prior to admission and began to take her percocet (normally used for migraines) to alleviate abdominal pain. ER at [facility] noted she may have an 'inflamed gallbladder with distended duct.' On admission here, RUQ US showed CBD measuring 8 mm, no gallbladder wall thickening, stones, or pericholecystic fluid. MRCP showed CBD 6 mm, no filling defect seen. On admission, TB 0.4, AST 20, ALT 17, alk phos 71. Pt also complains of increase in gas recently. Procedures: Colonoscopy 09/01/2013 Dr. Guevara: Four hyperplastic polyps ranging in size from 1-6 mm, two 2-3 mm tubular adenoma, internal hemorrhoids, tortuous colon. NSAIDs: None Anticoagulation: None Past Med Surg Social Fam HX - Past Medical History Medical history: no medical history, migraine Additional medical history: sinus surgery due to chronic sinusitis Psychiatric history: depression - Past Surgical History Additional surgical history: septum, gastric bypass, rt knee scope, tubal d&c, tonsillectomy and adenoidectomy, csection x 2 - Social History Smoking Status: Light tobacco smoker Smokeless Tobacco Status: No Alcohol use: occasionally Drug use: none - Family History Father Hx Family Cancer: Yes (Lung CA) - Gastrointestinal Gastrointestinal: Present: as per HPI - Constitutional Constitutional: as per HPI - EENT Eyes: as per HPI Ears: Present: as per HPI Nose, mouth and throat: Present: as per HPI - Cardiovascular Cardiovascular ROS: Present: as per HPI - Respiratory Respiratory IM: Present: as per HPI - Genitourinary Genitourinary: Absent: change in color, Urinary frequency - Neurological ROS Neurological GI: Present: as per HPI - Hematologic/Lymphatic Hematologic/Lymphatic pediatric: Present: as per HPI - Musculoskeletal Musculoskeletal ROS GI: Present: as per HPI - Integumentary Integumentary GI: Present: as per HPI - Psychiatric ROS Psychiatric GI: Present: as per HPI - Endocrine Endocrine IM: Present: as per HPI - Constitutional Vitals: Temp Pulse Resp BP Pulse Ox 97.5 F L 68 15 104/68 96 07/26/18 09:57 07/26/18 09:57 07/26/18 09:57 07/26/18 09:57 07/26/18 09:57 General appearance: Present: cooperative, A&O X 3, no acute distress, answers questions appropriately - Head Head exam: Present: atraumatic, normocephalic - Eye Eye exam: Present: normal appearance, sclera anicteric - ENT ENT exam: Present: mucous membranes dry - Neck Neck exam general surgery: Present: normal inspection, trachea midline - Respiratory Respiratory exam: Present: CTAB. Absent: rales, rhonchi - Cardiovascular Cardiovascular exam: Present: RRR, +S1, +S2 - GI/Abdominal GI/Abdominal exam: Present: soft, tenderness (RUQ), no peritoneal signs. Absent: distended, firm, guarding - Rectal Rectal exam: Present: deferred - Extremities Exam Extremities exam: Present: warm - Neurological Exam Neurological exam: Present: no focal deficits - Psychiatric Psychiatric exam: Present: normal affect, normal mood - Skin Skin exam: Present: dry, intact, normal color, warm Results - Labs CBC & Chem 7: 07/26/18 04:35 07/26/18 04:35 Labs: Last Result Calcium 8.9 mg/dL (8.6-10.3) 07/26/18 04:35 Entire Visit Hgb 13.1 g/dL (11.5-15.4) D 07/26/18 04:35 Hct 40.0 % (35.3-44.9) 07/26/18 04:35 Total Bilirubin 0.4 mg/dL (0.3-1.0) 07/25/18 12:57 AST 20 Units/L (13-39) 07/25/18 12:57 ALT 17 Units/L (7-52) 07/25/18 12:57 Lipase 28 Units/L (11-82) 07/25/18 12:57 - Impressions Impressions Gallbladder Ultrasound 07/25/18 13:17 IMPRESSION: Hepatomegaly with mild increased echotexture which may be related to hepatic steatosis. Mildly distended common bile duct measuring 8 mm. If any clinical concern for choledocholithiasis or biliary obstruction, this would be best assessed in a noninvasive fashion with MRCP. D/ / Jhonny Lester MD / Jhonny Lester MD Interpreting Provider: Jhonny Lester MD Abdomen MRI 07/25/18 15:45 IMPRESSION: No evidence of choledocholithiasis. Common bile duct is within normal limits for size. No acute findings. D/ / 07/25/2018 21:06:13 Mj Hraper MD / jeane Interpreting Provider: Mj Harper MD Consult Discharge Plan - Plan Referrals: Gen Méndez DO [Primary Care Provider] - <Victor M Delgado - Last Filed: 07/26/18 15:16> Time of Encounter: 12:00 - Time Spent With Patient Total time spent is greater than 50% in coordination of care (as documented) at patient's floor/unit and/or counseling patient: GI History of Present Illness - Data of Consult Requesting Physician: Fede Ruvalcaba - Consult Narrative History of present illness: Ms. Desir is a 53 year old female - Constitutional Vitals: Temp Pulse Resp BP Pulse Ox 97.5 F L 68 16 114/65 100 07/26/18 14:34 07/26/18 14:34 07/26/18 14:34 07/26/18 14:34 07/26/18 14:34 Results - Labs CBC & Chem 7: 07/26/18 04:35 07/26/18 04:35 Labs: Last Result Calcium 8.9 mg/dL (8.6-10.3) 07/26/18 04:35 Entire Visit Hgb 13.1 g/dL (11.5-15.4) D 07/26/18 04:35 Hct 40.0 % (35.3-44.9) 07/26/18 04:35 Total Bilirubin 0.4 mg/dL (0.3-1.0) 07/25/18 12:57 AST 20 Units/L (13-39) 07/25/18 12:57 ALT 17 Units/L (7-52) 07/25/18 12:57 Lipase 28 Units/L (11-82) 07/25/18 12:57 - Impressions Impressions Gallbladder Ultrasound 07/25/18 13:17 IMPRESSION: Hepatomegaly with mild increased echotexture which may be related to hepatic steatosis. Mildly distended common bile duct measuring 8 mm. If any clinical concern for choledocholithiasis or biliary obstruction, this would be best assessed in a noninvasive fashion with MRCP. D/ / Jhonny Lester MD / Jhonny Lester MD Interpreting Provider: Jhonny Lester MD Abdomen MRI 07/25/18 15:45 IMPRESSION: No evidence of choledocholithiasis. Common bile duct is within normal limits for size. No acute findings. D/ / 07/25/2018 21:06:13 Mj Harper MD / jeane Interpreting Provider: Mj Harper MD - Attending Attestation I have personally performed a face to face evaluation on this patient. I have reviewed and agree with the care plan. History and Exam by me shows: Patient seen patient with the history of gastric bypass now with the epigastric right upper quadrant pain especially with eating. On examination does has tenderness in the epigastric and upper quadrant area. Assessment: Patient 53-year-old female with a history of gastric bypass now with the upper abdominal pain ultrasound her gallbladder and MRCP is negative. Recommendation: EGD to rule out peptic ulcer disease especially anastomotic ulcer in this patient with a history of gastric bypass. If EGD negative then she will need a HIDA scan and possible input from surgery.
[2018-07-26] MEDS ORDERED: *HR* Midazolam HCl 5 MG/5 ML VIAL IVP ONE ×2 (11:40→12:38)
[2018-07-26] MEDS ORDERED: *HR* FentaNYL (PF) 100 MCG/2 ML VIAL ONE (11:40)
[2018-07-26] MEDS ORDERED: Simethicone 40 MG/0.6 ML MLS IR ONE (12:38)
[2018-07-26] MEDS: *HR* FentaNYL (PF) 100 MCG/2 ML VIAL IVP ONE ×3 (12:42→12:45)
--- NOTE | 2018-07-26 12:42 | Pre-Sedation Evaluation ---
Pre-sedation evaluation - Pre-sedation checklist Date of procedure: 07/26/18 Recent Vitals: Last Vital Signs Temp 97.8 F 07/26/18 12:00 Pulse 59 07/26/18 12:40 Resp 15 07/26/18 12:40 BP 121/66 07/26/18 12:40 Pulse Ox 96 07/26/18 12:40 ASA Classification *see protocol: CLASS III-Severe systemic disease Plan of Care: Pt appropriate candidate for procedure/moderate/conscious sedation, Risks/benefits of procedure/sedation discussed w/ patient/family
[2018-07-26] MEDS: *HR* OxyCODONE Immed Rel 5 MG TABLET PO PRN ×2 (14:46→20:52)
[2018-07-26] MEDS: Ondansetron 4 MG/2 ML VIAL IVP PRN (20:52)
[2018-07-26] MEDS: clonazePAM 0.5 MG TABLET PO SCH (20:52)
[2018-07-27 05:23] LABS: Basophils % 0.8 %; Eosinophils # 0.2 K/mcL (0.0-0.6); Eosinophils % 3.9 %; Hematocrit 40.5 % (35.3-44.9); Hemoglobin 12.9 g/dL (11.5-15.4); Immature Granulocytes % 0.2 % (0-4); Lymphocytes # 0.9 K/mcL (0.6-4.6); Lymphocytes % 18.8 %; Mean Corpuscular HGB Conc 31.9 g/dL (31.6-35.5); Mean Corpuscular Hemoglobin 31.3 pg (28.0-33.3); Mean Corpuscular Volume 98.3 fL (83.0-100.0); Mean Platelet Volume 10.1 fL (9.4-12.4); Monocytes # 0.5 K/mcL (0.0-1.3); Monocytes % 9.9 %; Neutrophils # 3.2 K/mcL (1.6-8.9); Platelet Count 222 K/mcL (140-400); Red Blood Count 4.12 M/mcL (3.82-4.97); Red Cell Distribution Width 12.3 % (11.5-14.5); Segmented Neutrophils % 66.4 %
[2018-07-27 05:47] LABS: BUN/Creatinine Ratio 10 (6-26); Blood Urea Nitrogen 7 mg/dL (6-20); Calcium 8.9 mg/dL (8.6-10.3); Carbon Dioxide 28 mEq/L (23-29); Chloride 111 mEq/L (98-107); Glucose 84 mg/dL (70-105); Osmolality,Calculated 291 (280-300); Potassium 3.9 mEq/L (3.5-5.1); Sodium 142 mEq/L (136-145); eGFR For Non-African Americans > 60 (> 60)
[2018-07-27] MEDS: 0.9 % Sodium Chloride 1,000 ML IVC SCH ×2 (06:44→12:00)
[2018-07-27] MEDS: BuPROPion XL (24 HR) 150 MG TABLET PO SCH (08:22)
[2018-07-27] MEDS: Ondansetron 4 MG/2 ML VIAL IVP PRN ×2 (08:23→14:25)
[2018-07-27] MEDS: *HR* OxyCODONE Immed Rel 5 MG TABLET PO PRN ×2 (08:23→14:25)
[2018-07-27] MEDS: Sucralfate 1 GM TABLET PO SCH ×3 (10:57→16:28)
[2018-07-27] MEDS ORDERED: Sucralfate 1 GM TABLET PO SCH (11:30)
[2018-07-27] MEDS: traMADol 50 MG TABLET PO PRN (13:21)
[2018-07-27] MEDS: clonazePAM 0.5 MG TABLET PO SCH (20:06)
[2018-07-28] MEDS: traMADol 50 MG TABLET PO PRN ×2 (01:30→10:55)
[2018-07-28] MEDS: Sucralfate 1 GM TABLET PO SCH ×3 (01:30→10:56)
[2018-07-28] MEDS: Ondansetron 4 MG/2 ML VIAL IVP PRN ×2 (01:30→10:55)
--- NOTE | 2018-07-28 07:37 | Internal Med Progress Note ---
Hospitalist Progress Note - Encounter Date of Encounter: 07/27/18 Time of Encounter: 09:40 - Subjective Interval History: Patient developed nausea and vomiting last evening after eating food. On clears this morning but reports some abd pain after eating. NO new episodes of emesis. - Exam Vitals: Temp Pulse Resp BP Pulse Ox 98.3 F 64 16 95/61 96 07/28/18 05:08 07/28/18 05:08 07/28/18 05:08 07/28/18 05:08 07/28/18 05:08 Exam: General: Patient is alert, no acute distress, oriented x 3 Respiratory: Good respiratory effort. Normal breath sounds. No wheezing or crackles. Cardiovascular: Regular rate and rhythm. s1 and s2 normal No clicks, rubs, gallops, or murmurs. No pedal edema Abdomen: Abdomen is soft, tender in the epigastric and right upper quadrant. Bowel sounds are present Musculoskeletal: Spontaneously moving all extremities Skin: warm, dry, intact. Neuro: Alert oriented x 3 normal cranial nerves, no focal deficits - Assessment and Plan (1) Gastric ulcer Current Visit: Yes Status: Acute Assessment and Plan: Continue PPI. Added carafate. Assess for tolerance of diet. Plan for discharge when patient able to tolerate at least full liquid diet with PRN antiemetics and pain meds. (2) Abdominal pain Current Visit: Yes Status: Acute Assessment and Plan: Most likely from gastric ulcer. HIDA and other GB workup negative. (3) Common bile duct dilatation Current Visit: Yes Status: Ruled-out Assessment and Plan: No choledocholithiasis - Time Spent with Patient Total time spent is greater than 50% in coordination of care (as documented) at patient's floor/unit and/or counseling patient: Internal Medicine: Result - Labs CBC & Chem 7: 07/27/18 04:50 07/27/18 04:50 - Impressions Impressions Bile Acid Absorption NM 07/26/18 14:45 IMPRESSION: 1. Normal hepatobiliary scan. D/ / Edison Piña MD / Edison Piña MD Interpreting Provider: Edison Piña MD Consult Discharge Plan - Plan Referrals: Gen Méndez DO [Primary Care Provider] - (1) Gastric ulcer Qualifiers: Gastric ulcer chronicity: acute Gastric ulcer complication status: without hemorrhage or perforation Qualified Code(s): K25.3 - Acute gastric ulcer without hemorrhage or perforation (2) Abdominal pain Qualifiers: Abdominal location: right upper quadrant Qualified Code(s): R10.11 - Right upper quadrant pain
[2018-07-28] MEDS: BuPROPion XL (24 HR) 150 MG TABLET PO SCH (09:52)
[2018-07-28] MEDS ORDERED: *HR* OxyCODONE/APAP 5/325 TABLET PO PRN (11:41)
[2018-07-28 15:16] VITALS: BP 98/63
--- NOTE | 2018-07-28 15:42 | Discharge Summary ---
<Tenzin Ford - Last Filed: 07/28/18 15:40> - NOTES TO OUTPATIENT PROVIDER Notes to Outpatient Provider: Follow up on advancing diet - d/c home with emphasis on starting liquids and advancing diet slowly as tolerated. Gave recommednation to avoid spicy foods, mint, friend foods, salt, high-fat foods. Recommended bland diet. Will send - carafate, omeprazole, phenergan. Date of Encounter: 07/28/18 Time of Encounter: 15:40 - Discharge Diagnosis (1) Gastric ulcer Priority: Primary Status: Acute Qualifiers: Gastric ulcer chronicity: acute Gastric ulcer complication status: without hemorrhage or perforation Qualified Code(s): K25.3 - Acute gastric ulcer without hemorrhage or perforation (2) Abdominal pain Priority: Primary Status: Acute Qualifiers: Abdominal location: right upper quadrant Qualified Code(s): R10.11 - Right upper quadrant pain (3) Anxiety and depression Priority: Secondary Status: Chronic Hospital course: Ms. Desir is a 53 year old female with PMHx gastric bypass surgery (2004), anxiety, migraines, chronic sinusitis who presented with RUQ tenderness for the past 5 days. Pain was worse with meals and resolved with bowel rest. Pain described as sharp, stabbing that radiates around to back, associated with nausea, bloating, few episodes of light colored stools. Presented to ED after initial eval at [facility] suggesting she may have gallbladder pathology. ED workup showed stable patient in moderate distress due to pain. Vitals stable in ED. CBC, CMP, Lipase WNL. UA was benign. U/S Gallbladder indicated possible mildly distended common bile duct, but not gallbladder wall thickening, pericholecystic fluid, stones. Pt was admitted for further evaluation by GI. MRCP showed no evidence of choledocholithiasis and indicated common bile duct was within normal limits. PPI was started. HIDA Scan - normal hepatobiliary scan. Endoscopy indicated non bleeding gastric ulcer at gastroenteric anastamosis. Recommendation was Carafate Liquid TID and Omeprazole 40mg capsules. Patient's diet was slowly advanced. Plan to send home with recommendations for continued slow advancement of diet, and advice to eat bland foods, non-spicy, non-fried, no mint, low-fat diet. Discharge discussed with: patient Time spent discussing smoking cessation with patient: 3 to 10 minutes - Time Spent with Patient Total time spent providing and/or coordinating discharge services: Less than 30 minutes - Discharge Medications Prescriptions: OxyCODONE/APAP 5/325 [Percocet 5/325 MG] 1 each PO Q6HR PRN 3 Days #10 tablet PRN Reason: Pain Promethazine [Phenergan] 25 mg PO Q8HR 14 Days #42 tablet Omeprazole [PriLOSEC] 40 mg PO DAILY@0630 60 Days #60 capsule. Sucralfate [Carafate] 1 gm PO QIDAC 60 Days #120 tablet Home Medications: Bupropion HCl [Wellbutrin Xl] 300 mg PO DAILY 07/25/18 [History] Escitalopram [Lexapro] 20 mg PO DAILY 07/25/18 [History] Montelukast [Singulair] 10 mg PO DAILY 07/25/18 [History] Propranolol [Inderal] 20 mg PO DAILY PRN 07/25/18 [History] clonazePAM [Clonazepam] 1 mg PO HS 07/25/18 [History] Acetaminophen [Tylenol] 650 mg PO Q6HR PRN tablet 07/28/18 [Rx] Omeprazole [PriLOSEC] 40 mg PO DAILY@0630 60 Days #60 capsule. 07/28/18 [Rx] OxyCODONE/APAP 5/325 [Percocet 5/325 MG] 1 each PO Q6HR PRN 3 Days #10 tablet 07/28/18 [Rx] Promethazine [Phenergan] 25 mg PO Q8HR 14 Days #42 tablet 07/28/18 [Rx] Sucralfate [Carafate] 1 gm PO QIDAC 60 Days #120 tablet 07/28/18 [Rx] Allergies/Adverse Reactions: Allergy/AdvReac Type Severity Reaction Status Date / Time clarithromycin [From Biaxin] Allergy Rash Verified 07/25/18 09:57 Date of admission: 07/25/18 16:10 Primary care physician: Gen Méndez DO Consults: 07/25/18 16:09 Consult to Gastroenterology [CONS] Stat Consulting Provider: Gastroenterology Lynsey Reason for Consult: Dilated CBD Call Completed: Yes Discharging clinician: Tenzin Ford Anticipated date of discharge: 07/28/18 - Constitutional Vitals: Temp Pulse Resp BP Pulse Ox 98.1 F 62 15 98/63 94 07/28/18 15:11 07/28/18 15:11 07/28/18 15:11 07/28/18 15:11 07/28/18 15:11 General appearance: Present: mild distress, A&O X 3, answers questions appropriately Exam: GEN: AOx3, NAD HEENT: ATraumatic, Normocephalic, EOMI CARDIO: RRR, no murmurs, rubs, gallops RESP: CTAB, no wheezes, rales, rhonchi ABD: Soft, mild tenderness to palpation in epigastric region, non-distended NEURO: CN 2-12, no focal deficits - Patient Status Disposition: Home, Self-Care Condition: Fair Functional capacity at discharge: independent ambulation Overall status at discharge: patient is progressing back to baseline - Discharge Instructions Instructions: Peptic Ulcer (DC), Diet for Ulcers and Gastritis (GEN) Follow Up With: Gen Méndez DO [Primary Care Provider] - (in 1-2 weeks) - Diet and Activity Activity: resume usual activities as tolerated Diet: low fat, low cholesterol, low salt diet <Jose D Noyola - Last Filed: 07/28/18 16:26> Date of Encounter: 07/28/18 Time of Encounter: 16:22 - Discharge Diagnosis (1) Gastric ulcer Status: Acute Qualifiers: Gastric ulcer chronicity: acute Gastric ulcer complication status: without hemorrhage or perforation Qualified Code(s): K25.3 - Acute gastric ulcer without hemorrhage or perforation (2) Abdominal pain Status: Acute Qualifiers: Abdominal location: right upper quadrant Qualified Code(s): R10.11 - Right upper quadrant pain (3) Common bile duct dilatation Status: Ruled-out Hospital course: Ms. Desir is a 53 year old female - Time Spent with Patient Total time spent providing and/or coordinating discharge services: Date of admission: 07/25/18 16:10 Primary care physician: Gen Méndez DO Consults: 07/25/18 16:09 Consult to Gastroenterology [CONS] Stat Consulting Provider: Gastroenterology Lynsey Reason for Consult: Dilated CBD Call Completed: Yes - Constitutional Vitals: Temp Pulse Resp BP Pulse Ox 98.1 F 62 15 98/63 94 07/28/18 15:11 07/28/18 15:11 07/28/18 15:11 07/28/18 15:11 07/28/18 15:11 - Diet and Activity Activity: return to work once cleared by your PCP/specialist (08/04/18) Diet: other (Full liquid diet and advance slowly as tolerated.) - Attending Attestation I saw evaluated and examined this patient and my medical decision-making was reviewed with the Resident Physician, Tenzin Ford. I agree with the documented findings, disposition and treatment plan as described except to any changes set forth below. We independently had [id number] contact with the patient. Patient hospitalized here after presenting with epigastric and right upper quadr ant pain. Initially believed to be gallbladder issues has CT scan of the abdomen showed biliary thickening and possible CBD dilation. She underwent ultrasound of the gallbladder which did not show any cholecystitis or gallbladder wall thickening. She then underwent MRCP which did not show any choledocholithiasis. She also underwent HIDA scan which was normal. She was evaluated by GI and underwent upper GI endoscopy which showed a gastric ulcer at her anastomosis site from prior gastric bypass surgery. H pylori was neck was negative for pathology. Patient has been tolerating full liquid diet here and is advised to continue the same. She does continue to have abdominal pain and will need follow-up with GI. She will be discharged on Carafate and omeprazole with Percocet to treat severe pain. She is to advance her diet slowly. On exam today, she does have tenderness in the right upper quadrant and epigastric region although it is significantly improved overall.
--- NOTE | 2018-07-29 19:22 | Electrocardiograph Report ---
[address] [address] Test Date: 2018-07-25 Pat Name: Marybel Desir Department: [id number] Room: 3A16 Gender: F Network Specialist: : [id number] Requested By: Chepe May Order Number: [id number] Reading MD: Champ Napoles Measurements Intervals [place] Rate: 64 P: 64 [place]: 162 QRS: 22 QRSD: 95 T: 33 QT: 421 QTc: 435 Interpretive Statements Sinus rhythm Electronically Signed On 07-29-2018 19:20:57 EDT by Champ Napoles
== END 2018-07-28 17:02 | disposition home or self-care (01) ==
LOC: EMEROOARM 12:02 → 3ANU 12:02 → SUATTDRO 16:10 → 3ANU 17:03
PROVIDERS: ADMIT Hospitalist; ATTEND Internal Medicine
PROC: ENDOEBX (2018-07-26 12:00)

== ENCOUNTER 2019-10-30 10:31 | Observation (INO) ==
[2019-10-30] MEDS ORDERED: Pantoprazole 40 MG VIAL IVP ONE (10:50)
[2019-10-30] MEDS ORDERED: *HR* FentaNYL (PF) 100 MCG/2 ML VIAL IVP ONE (11:29)
[2019-10-30] MEDS ORDERED: Ondansetron 4 MG/2 ML VIAL IVP ONE (11:29)
[2019-10-30 11:44] LABS: Basophils # 0.1 K/mcL (0.0-0.2); Basophils % 1.1 %; Eosinophils # 0.2 K/mcL (0.0-0.6); Eosinophils % 3.1 %; Hematocrit 41.8 % (35.3-44.9); Hemoglobin 13.9 g/dL (11.5-15.4); Immature Granulocytes % 0.3 % (0-4); Lymphocytes # 1.1 K/mcL (0.6-4.6); Lymphocytes % 18.1 %; Mean Corpuscular HGB Conc 33.3 g/dL (31.6-35.5); Mean Corpuscular Hemoglobin 31.2 pg (28.0-33.3); Mean Corpuscular Volume 93.7 fL (83.0-100.0); Mean Platelet Volume 9.8 fL (9.4-12.4); Monocytes # 0.6 K/mcL (0.0-1.3); Monocytes % 9.6 %; Neutrophils # 4.2 K/mcL (1.6-8.9); Platelet Count 311 K/mcL (140-400); Red Blood Count 4.46 M/mcL (3.82-4.97); Segmented Neutrophils % 67.8 %; White Blood Count 6.1 K/mcL (4.3-11.1)
[2019-10-30 11:50] LABS: Activated Partial Thrombo Time 33.1 Seconds (26.0-36.0)
[2019-10-30] MEDS ORDERED: Isovue-370 500 ML BOTTLE IVP ONE (11:55)
[2019-10-30 12:16] LABS: Alanine Aminotransferase 15 Units/L (7-52); Albumin 4.2 g/dL (3.5-5.7); Albumin/Globulin Ratio 1.5 (1.1-2.2); Alkaline Phosphatase 78 Units/L (34-104); Aspartate Amino Transferase 20 Units/L (13-39); BUN/Creatinine Ratio 26 (6-26); Bilirubin,Total 0.3 mg/dL (0.3-1.0); Blood Urea Nitrogen 23 mg/dL (6-20); Calcium 9.6 mg/dL (8.6-10.3); Carbon Dioxide 26 mEq/L (23-29); Chloride 104 mEq/L (98-107); Globulin 2.8 g/dL (2.4-3.5); Glucose 100 mg/dL (70-105); Magnesium 1.8 mg/dL (1.6-2.6); Osmolality,Calculated 294 (280-300); Potassium 3.7 mEq/L (3.5-5.1); Sodium 140 mEq/L (136-145); eGFR For African Americans > 60 (> 60); eGFR For Non-African Americans > 60 (> 60)
[2019-10-30] MEDS ORDERED: *HR* OxyCODONE/APAP 5/325 TABLET PO ONE (14:21)
[2019-10-30] MEDS ORDERED: Naloxone 0.4 MG/ML INJ IVP PRN (15:09)
[2019-10-30] MEDS: Pantoprazole 40 MG VIAL IVP SCH (18:14)
[2019-10-30] MEDS: clonazePAM 0.5 MG TABLET PO SCH (20:45)
[2019-10-31 01:03] LABS: Basophils # 0.1 K/mcL (0.0-0.2); Basophils % 1.3 %; Eosinophils # 0.2 K/mcL (0.0-0.6); Hematocrit 39.6 % (35.3-44.9); Hemoglobin 12.8 g/dL (11.5-15.4); Immature Granulocytes % 0.2 % (0-4); Lymphocytes # 0.9 K/mcL (0.6-4.6); Mean Corpuscular HGB Conc 32.3 g/dL (31.6-35.5); Mean Corpuscular Hemoglobin 31.4 pg (28.0-33.3); Mean Corpuscular Volume 97.1 fL (83.0-100.0); Mean Platelet Volume 9.9 fL (9.4-12.4); Monocytes # 0.4 K/mcL (0.0-1.3); Monocytes % 9.4 %; Neutrophils # 2.9 K/mcL (1.6-8.9); Platelet Count 273 K/mcL (140-400); Red Blood Count 4.08 M/mcL (3.82-4.97); Red Cell Distribution Width 12.2 % (11.5-14.5); Segmented Neutrophils % 64.1 %; White Blood Count 4.5 K/mcL (4.3-11.1)
[2019-10-31 01:22] LABS: BUN/Creatinine Ratio 33 (6-26); Blood Urea Nitrogen 21 mg/dL (6-20); Calcium 9.3 mg/dL (8.6-10.3); Carbon Dioxide 26 mEq/L (23-29); Chloride 106 mEq/L (98-107); Glucose 88 mg/dL (70-105); Osmolality,Calculated 292 (280-300); Sodium 140 mEq/L (136-145); eGFR For African Americans > 60 (> 60); eGFR For Non-African Americans > 60 (> 60)
[2019-10-31] MEDS: *HR* OxyCODONE/APAP 5/325 TABLET PO PRN ×2 (04:01→10:24)
[2019-10-31] MEDS ORDERED: *HR* Promethazine 25 MG/ML VIAL IVP ONE (04:41)
[2019-10-31] MEDS: Pantoprazole 40 MG VIAL IVP SCH (04:56)
[2019-10-31] MEDS: BuPROPion XL (24 HR) 150 MG TABLET PO SCH (07:44)
[2019-10-31] MEDS: *HR* Promethazine 25 MG/ML VIAL IVP PRN (10:25)
[2019-10-31 12:20] LABS: Basophils # 0.1 K/mcL (0.0-0.2); Basophils % 1.5 %; Eosinophils # 0.2 K/mcL (0.0-0.6); Eosinophils % 4.2 %; Hematocrit 39.6 % (35.3-44.9); Hemoglobin 13.2 g/dL (11.5-15.4); Immature Granulocytes % 0.2 % (0-4); Lymphocytes # 0.9 K/mcL (0.6-4.6); Lymphocytes % 21.7 %; Mean Corpuscular HGB Conc 33.3 g/dL (31.6-35.5); Mean Corpuscular Hemoglobin 31.4 pg (28.0-33.3); Mean Corpuscular Volume 94.3 fL (83.0-100.0); Mean Platelet Volume 9.7 fL (9.4-12.4); Monocytes # 0.4 K/mcL (0.0-1.3); Monocytes % 10.9 %; Neutrophils # 2.5 K/mcL (1.6-8.9); Platelet Count 277 K/mcL (140-400); Red Cell Distribution Width 12.1 % (11.5-14.5); Segmented Neutrophils % 61.5 %; White Blood Count 4.1 K/mcL (4.3-11.1)
[2019-10-31] MEDS ORDERED: Acetaminophen IV 1,000 MG/100 ML INFUS..BTL IVPB ONE (12:27)
[2019-10-31] MEDS ORDERED: Simethicone 40 MG/0.6 ML MLS IR ONE (12:29)
[2019-10-31] MEDS ORDERED: Lidocaine -MPF 2% 2 ML VIAL ONE (12:43)
[2019-10-31] MEDS ORDERED: Propofol 500 MG/50 ML INFUS..BTL ONE (12:43)
[2019-10-31] MEDS ORDERED: Ketorolac 30 MG/ML VIAL IVP ONE (16:16)
[2019-10-31] MEDS ORDERED: methylPREDNISolone 125 MG/2 ML VIAL IVP ONE (16:18)
[2019-10-31] MEDS: Prochlorperazine 10 MG/2 ML VIAL IVP PRN (16:42)
[2019-10-31] MEDS: clonazePAM 0.5 MG TABLET PO SCH ×2 (21:54→23:21)
[2019-11-01] MEDS: BuPROPion XL (24 HR) 150 MG TABLET PO SCH (07:34)
[2019-11-01] MEDS: *HR* Promethazine 25 MG/ML VIAL IVP PRN ×2 (07:39→22:52)
[2019-11-01] MEDS: *HR* OxyCODONE/APAP 5/325 TABLET PO PRN ×2 (07:39→22:18)
[2019-11-01] MEDS ORDERED: Ketorolac 30 MG/ML VIAL IVP ONE (09:59)
[2019-11-01] MEDS ORDERED: Prochlorperazine 10 MG/2 ML VIAL IVP PRN (09:59)
[2019-11-01] MEDS: Prochlorperazine 10 MG/2 ML VIAL IVP PRN (10:15)
[2019-11-01] MEDS: Stomatitis Mixture 5 ML UDC PO SCH ×3 (11:52→21:07)
[2019-11-01] MEDS: Topiramate 25 MG CAP.SPRINK PO SCH ×2 (13:47→21:07)
[2019-11-01] MEDS: clonazePAM 0.5 MG TABLET PO SCH (21:06)
[2019-11-02] MEDS ORDERED: Acetaminophen/Aspirin/Caffeine TABLET PO PRN (06:20)
[2019-11-02] MEDS: *HR* Promethazine 25 MG/ML VIAL IVP PRN ×2 (06:36→19:30)
[2019-11-02] MEDS: BuPROPion XL (24 HR) 150 MG TABLET PO SCH (09:56)
[2019-11-02] MEDS: Topiramate 25 MG CAP.SPRINK PO SCH ×2 (09:56→21:19)
[2019-11-02] MEDS ORDERED: Sennosides/Docusate Sodium TABLET PO PRN (10:37)
[2019-11-02] MEDS: Ondansetron 4 MG/2 ML VIAL IVP PRN ×2 (10:44→16:46)
[2019-11-02] MEDS: Stomatitis Mixture 5 ML UDC PO SCH ×4 (12:47→21:19)
[2019-11-02] MEDS: *HR* OxyCODONE/APAP 5/325 TABLET PO PRN (19:32)
[2019-11-02] MEDS: clonazePAM 0.5 MG TABLET PO SCH (21:19)
[2019-11-03] MEDS: *HR* Promethazine 25 MG/ML VIAL IVP PRN (02:29)
[2019-11-03] MEDS: *HR* OxyCODONE/APAP 5/325 TABLET PO PRN (04:15)
[2019-11-03 06:42] VITALS: BP 98/60
[2019-11-03] MEDS: Topiramate 25 MG CAP.SPRINK PO SCH (07:54)
[2019-11-03] MEDS: BuPROPion XL (24 HR) 150 MG TABLET PO SCH (07:54)
[2019-11-03] MEDS: Stomatitis Mixture 5 ML UDC PO SCH (07:55)
[2019-11-03] MEDS: Ondansetron 4 MG/2 ML VIAL IVP PRN (07:55)
== END 2019-11-03 11:15 | disposition home or self-care (01) ==
LOC: 3ANU 10:31 → EMEROOARM 10:31 → 3ANU 15:37
PROVIDERS: ADMIT Internal Medicine; ATTEND Internal Medicine

== ENCOUNTER 2020-01-30 00:22 | Observation (INO) ==
[2020-01-30] MEDS ORDERED: Morphine Sulfate 2 MG/ML SYRINGE IVP ONE ×2 (00:41→02:43)
[2020-01-30] MEDS ORDERED: Isovue-370 500 ML BOTTLE IVP ONE (00:41)
[2020-01-30] MEDS ORDERED: Ondansetron 4 MG/2 ML VIAL IVP ONE (00:41)
[2020-01-30 01:31] LABS: Basophils % 0.7 %; Eosinophils % 0.2 %; Hematocrit 41.6 % (35.3-44.9); Hemoglobin 13.6 g/dL (11.5-15.4); Immature Granulocytes % 0.4 % (0-4); Lymphocytes # 0.9 K/mcL (0.6-4.6); Lymphocytes % 16.1 %; Mean Corpuscular HGB Conc 32.7 g/dL (31.6-35.5); Mean Corpuscular Hemoglobin 30.6 pg (28.0-33.3); Mean Corpuscular Volume 93.5 fL (83.0-100.0); Mean Platelet Volume 9.7 fL (9.4-12.4); Monocytes # 0.8 K/mcL (0.0-1.3); Monocytes % 14.8 %; Neutrophils # 3.8 K/mcL (1.6-8.9); Platelet Count 272 K/mcL (140-400); Red Blood Count 4.45 M/mcL (3.82-4.97); Segmented Neutrophils % 67.8 %; White Blood Count 5.5 K/mcL (4.3-11.1)
[2020-01-30 01:35] LABS: INR 1.1; Prothrombin Time 12.1 Seconds (9.4-12.1)
[2020-01-30 01:59] LABS: Alanine Aminotransferase 22 Units/L (7-52); Albumin/Globulin Ratio 1.3 (1.1-2.2); Alkaline Phosphatase 87 Units/L (34-104); Amylase 51 Units/L (29-103); Aspartate Amino Transferase 18 Units/L (13-39); BUN/Creatinine Ratio 21 (6-26); Bilirubin,Direct 0.1 mg/dL (0.0-0.2); Bilirubin,Indirect 0.2 mg/dL (0.0-1.0); Bilirubin,Total 0.3 mg/dL (0.3-1.0); Blood Urea Nitrogen 17 mg/dL (6-20); Calcium 9.3 mg/dL (8.6-10.3); Carbon Dioxide 23 mEq/L (23-29); Chloride 107 mEq/L (98-107); Globulin 3.1 g/dL (2.4-3.5); Glucose 90 mg/dL (70-105); Lipase 31 Units/L (11-82); Osmolality,Calculated 289 (280-300); Potassium 3.7 mEq/L (3.5-5.1); Sodium 139 mEq/L (136-145); Total Protein 7.1 g/dL (6.4-8.9); Troponin I < 0.03 ng/mL (< 0.04); eGFR For African Americans > 60 (> 60); eGFR For Non-African Americans > 60 (> 60)
[2020-01-30 02:27] LABS: Bilirubin,Urine Negative (Negative); Blood,Urine Small (Negative); Clarity,Urine Clear (Clear); Color,Urine Yellow (Yellow); Glucose,Urine (UA) Normal (Normal); Ketones,Urine Negative (Negative); Leukocyte Esterase,Urine Moderate (Negative); Nitrite,Urine Negative (Negative); PH,Urine 5.5 pH Units (5.0-8.0); Protein,Urine Negative (Neg-Trace); Specific Gravity,Urine 1.028 (1.010-1.025); Urobilinogen,Urine Normal (Normal)
[2020-01-30 02:28] LABS: Bacteria,Urine None Seen per hpf (None-Few); Hyaline Casts,Urine None Seen per lpf (None-Few); RBC,Urine 15-30 per hpf (0-3); Squamous Epithelial Cell,Urine Many per lpf (None-Few); WBC,Urine 15-30 per hpf (0-3)
[2020-01-30] MEDS ORDERED: cefTRIAXone 1,000 MG in Water for inj. (sterile) 10 ML IVP ONE (02:46)
[2020-01-30] MEDS ORDERED: MetroNIDAZOLE 500 MG/100 ML 500 MG/100 ML BAG IVPB ONE (02:46)
[2020-01-30] MEDS ORDERED: Naloxone 0.4 MG/ML INJ IVP PRN (05:12)
[2020-01-30] MEDS ORDERED: 0.9 % Sodium Chloride 1,000 ML IVC SCH (06:15)
[2020-01-30] MEDS: 0.9 % Sodium Chloride 1,000 ML IVC SCH ×2 (06:50→16:44)
[2020-01-30] MEDS: BuPROPion XL (24 HR) 150 MG TABLET PO SCH (07:51)
[2020-01-30] MEDS: MetroNIDAZOLE 500 MG/100 ML 500 MG/100 ML BAG IVPB SCH ×2 (07:51→16:29)
[2020-01-30] MEDS: Metoprolol XL (24 HR) Succ 25 MG TAB.ER.24H PO SCH (07:51)
[2020-01-30] MEDS: Sucralfate 1 GM TABLET PO SCH ×4 (07:51→20:30)
[2020-01-30] MEDS: *HR* OxyCODONE/APAP 5/325 TABLET PO PRN ×2 (08:37→20:30)
[2020-01-30] MEDS ORDERED: Topiramate 25 MG CAP.SPRINK PO SCH (09:00)
[2020-01-30] MEDS: Prenatal Vit/FA 1 EACH TABLET PO SCH (13:01)
[2020-01-30] MEDS: *HR* Enoxaparin 40 MG/0.4 ML SYRINGE SQ SCH (17:44)
[2020-01-30] MEDS ORDERED: *HR* Heparin 5,000 UNIT/ML VIAL SQ SCH (18:00)
[2020-01-30] MEDS: clonazePAM 1 MG TABLET PO SCH (20:30)
[2020-01-30] MEDS: Ondansetron 4 MG/2 ML VIAL IVP PRN (20:43)
[2020-01-31] MEDS: MetroNIDAZOLE 500 MG/100 ML 500 MG/100 ML BAG IVPB SCH ×3 (00:52→17:42)
[2020-01-31 02:45] LABS: INR 1.1
[2020-01-31 02:46] LABS: Basophils % 0.5 %; Hemoglobin 12.2 g/dL (11.5-15.4); Immature Granulocytes % 0.3 % (0-4); Lymphocytes # 0.9 K/mcL (0.6-4.6); Lymphocytes % 24.1 %; Mean Corpuscular HGB Conc 31.3 g/dL (31.6-35.5); Mean Corpuscular Hemoglobin 30.2 pg (28.0-33.3); Mean Corpuscular Volume 96.5 fL (83.0-100.0); Mean Platelet Volume 10.3 fL (9.4-12.4); Monocytes # 0.6 K/mcL (0.0-1.3); Monocytes % 15.2 %; Neutrophils # 2.2 K/mcL (1.6-8.9); Platelet Count 247 K/mcL (140-400); Red Blood Count 4.04 M/mcL (3.82-4.97); Red Cell Distribution Width 12.2 % (11.5-14.5); Segmented Neutrophils % 59.9 %; White Blood Count 3.7 K/mcL (4.3-11.1)
[2020-01-31 03:02] LABS: Alanine Aminotransferase 18 Units/L (7-52); Albumin 3.3 g/dL (3.5-5.7); Albumin/Globulin Ratio 1.2 (1.1-2.2); Alkaline Phosphatase 72 Units/L (34-104); Aspartate Amino Transferase 15 Units/L (13-39); BUN/Creatinine Ratio 14 (6-26); Bilirubin,Total 0.3 mg/dL (0.3-1.0); Blood Urea Nitrogen 10 mg/dL (6-20); Calcium 8.7 mg/dL (8.6-10.3); Carbon Dioxide 23 mEq/L (23-29); Chloride 109 mEq/L (98-107); Chol/HDL Ratio 2.4 (0-4.9); Cholesterol 114 mg/dL (< 200); Globulin 2.8 g/dL (2.4-3.5); Glucose 80 mg/dL (70-105); HDL Cholesterol 48 mg/dL (40-59); LDL Cholesterol,Calculated 49 mg/dL (0-99); Osmolality,Calculated 288 (280-300); Phosphorous 3.7 mg/dL (2.7-4.5); Sodium 140 mEq/L (136-145); Total Protein 6.1 g/dL (6.4-8.9); Triglycerides 87 mg/dL (< 150); eGFR For African Americans > 60 (> 60); eGFR For Non-African Americans > 60 (> 60)
[2020-01-31] MEDS: *HR* OxyCODONE/APAP 5/325 TABLET PO PRN ×4 (05:14→21:26)
[2020-01-31] MEDS: Ondansetron 4 MG/2 ML VIAL IVP PRN ×2 (05:15→18:12)
[2020-01-31] MEDS: Sucralfate 1 GM TABLET PO SCH ×4 (05:52→21:26)
[2020-01-31] MEDS: Metoprolol XL (24 HR) Succ 25 MG TAB.ER.24H PO SCH (08:23)
[2020-01-31] MEDS: Prenatal Vit/FA 1 EACH TABLET PO SCH (08:23)
[2020-01-31] MEDS: Venlafaxine XR (24 HR) 75 MG CAP.ER.24H PO SCH (08:23)
[2020-01-31] MEDS: BuPROPion XL (24 HR) 150 MG TABLET PO SCH (08:23)
[2020-01-31] MEDS: *HR* Enoxaparin 40 MG/0.4 ML SYRINGE SQ SCH (18:12)
[2020-01-31] MEDS: clonazePAM 1 MG TABLET PO SCH (21:26)
[2020-02-01] MEDS: MetroNIDAZOLE 500 MG/100 ML 500 MG/100 ML BAG IVPB SCH ×4 (00:36→23:30)
[2020-02-01] MEDS: *HR* OxyCODONE/APAP 5/325 TABLET PO PRN ×4 (01:28→17:59)
[2020-02-01] MEDS ORDERED: 0.9 % Sodium Chloride 1,000 ML IVC SCH (08:45)
[2020-02-01] MEDS: Metoprolol XL (24 HR) Succ 25 MG TAB.ER.24H PO SCH (09:57)
[2020-02-01] MEDS: Prenatal Vit/FA 1 EACH TABLET PO SCH (10:03)
[2020-02-01] MEDS: Sucralfate 1 GM TABLET PO SCH ×4 (10:03→20:08)
[2020-02-01] MEDS: BuPROPion XL (24 HR) 150 MG TABLET PO SCH (10:03)
[2020-02-01] MEDS: Venlafaxine XR (24 HR) 75 MG CAP.ER.24H PO SCH (10:03)
[2020-02-01] MEDS: *HR* Enoxaparin 40 MG/0.4 ML SYRINGE SQ SCH (17:44)
[2020-02-01] MEDS: clonazePAM 1 MG TABLET PO SCH (20:08)
[2020-02-01] MEDS: Ondansetron 4 MG/2 ML VIAL IVP PRN (20:08)
[2020-02-02 05:22] LABS: Basophils % 0.5 %; Hematocrit 40.3 % (35.3-44.9); Hemoglobin 12.8 g/dL (11.5-15.4); Lymphocytes # 1.1 K/mcL (0.6-4.6); Lymphocytes % 28.6 %; Mean Corpuscular HGB Conc 31.8 g/dL (31.6-35.5); Mean Corpuscular Hemoglobin 30.1 pg (28.0-33.3); Mean Corpuscular Volume 94.8 fL (83.0-100.0); Mean Platelet Volume 10.3 fL (9.4-12.4); Monocytes # 0.4 K/mcL (0.0-1.3); Monocytes % 11.6 %; Neutrophils # 2.2 K/mcL (1.6-8.9); Platelet Count 267 K/mcL (140-400); Red Blood Count 4.25 M/mcL (3.82-4.97); Red Cell Distribution Width 11.8 % (11.5-14.5); Segmented Neutrophils % 59.3 %; White Blood Count 3.7 K/mcL (4.3-11.1)
[2020-02-02 05:41] LABS: BUN/Creatinine Ratio 11 (6-26); Blood Urea Nitrogen 8 mg/dL (6-20); Calcium 8.7 mg/dL (8.6-10.3); Carbon Dioxide 24 mEq/L (23-29); Chloride 108 mEq/L (98-107); Glucose 87 mg/dL (70-105); Magnesium 1.9 mg/dL (1.6-2.6); Osmolality,Calculated 288 (280-300); Phosphorous 3.2 mg/dL (2.7-4.5); Potassium 3.9 mEq/L (3.5-5.1); Sodium 140 mEq/L (136-145); eGFR For African Americans > 60 (> 60); eGFR For Non-African Americans > 60 (> 60)
[2020-02-02] MEDS: Sucralfate 1 GM TABLET PO SCH ×2 (09:02→12:12)
[2020-02-02] MEDS: Metoprolol XL (24 HR) Succ 25 MG TAB.ER.24H PO SCH (09:02)
[2020-02-02] MEDS: Venlafaxine XR (24 HR) 75 MG CAP.ER.24H PO SCH (09:02)
[2020-02-02] MEDS: Prenatal Vit/FA 1 EACH TABLET PO SCH (09:02)
[2020-02-02] MEDS: BuPROPion XL (24 HR) 150 MG TABLET PO SCH (09:02)
[2020-02-02] MEDS: MetroNIDAZOLE 500 MG/100 ML 500 MG/100 ML BAG IVPB SCH (09:03)
[2020-02-02] MEDS: *HR* OxyCODONE/APAP 5/325 TABLET PO PRN (09:14)
[2020-02-02] MEDS: Ondansetron 4 MG/2 ML VIAL IVP PRN (09:14)
[2020-02-02 11:28] VITALS: BP 98/57
== END 2020-02-02 15:54 | disposition home or self-care (01) ==
LOC: EMEROOARM 00:22 → 2NENU 00:22 → SUATTDRO 03:57 → 2NENU 04:26 → 3BNU 19:43
PROVIDERS: ADMIT Family Medicine; ATTEND Internal Medicine

== ENCOUNTER 2022-02-18 19:21 | Observation (INO) ==
[2022-02-18] MEDS ORDERED: Ketorolac 30 MG/ML VIAL IVP ONE ×2 (19:42→20:45)
[2022-02-18] MEDS ORDERED: Orphenadrine 60 MG/2 ML VIAL IVP ONE (19:42)
[2022-02-18] MEDS ORDERED: *HR* FentaNYL (PF) 100 MCG/2 ML VIAL IVP ONE ×3 (19:43→21:44)
[2022-02-19] MEDS ORDERED: *HR* HYDROcodone/Acet 5/325 mg TABLET PO PRN ×3 (00:26→17:35)
[2022-02-19] MEDS ORDERED: Naloxone 0.4 MG/ML INJ IVP PRN (00:26)
[2022-02-19] MEDS ORDERED: *HR* OxyCODONE Immed Rel 5 MG TABLET PO PRN (00:26)
[2022-02-19] MEDS ORDERED: Ondansetron ODT 4 MG TAB.RAPDIS SL PRN (00:26)
[2022-02-19] MEDS ORDERED: Melatonin 3 MG TABLET PO PRN (00:26)
[2022-02-19 05:16] LABS: Hematocrit 43.4 % (35.3-44.9); Hemoglobin 14.1 g/dL (11.5-15.4); Mean Corpuscular HGB Conc 32.5 g/dL (31.6-35.5); Mean Corpuscular Hemoglobin 30.7 pg (28.0-33.3); Mean Corpuscular Volume 94.3 fL (83.0-100.0); Mean Platelet Volume 9.5 fL (9.4-12.4); Platelet Count 285 K/mcL (140-400); Red Cell Distribution Width 12.4 % (11.5-14.5)
[2022-02-19 05:35] LABS: BUN/Creatinine Ratio 16 (6-26); Blood Urea Nitrogen 15 mg/dL (6-20); Calcium 9.6 mg/dL (8.6-10.3); Carbon Dioxide 21 mEq/L (23-29); Chloride 108 mEq/L (98-107); Glucose 135 mg/dL (70-105); Magnesium 2.1 mg/dL (1.6-2.6); Osmolality,Calculated 291 (280-300); Phosphorous 3.2 mg/dL (2.7-4.5); Potassium 4.4 mEq/L (3.5-5.1); Sodium 139 mEq/L (136-145); eGFR For African Americans > 60 (> 60); eGFR For Non-African Americans 60 (> 60)
[2022-02-19] MEDS: Acetaminophen 325 MG TABLET PO PRN (09:28)
[2022-02-19] MEDS ORDERED: Ketorolac 30 MG/ML VIAL IVP PRN (17:34)
[2022-02-19] MEDS ORDERED: clonazePAM 1 MG TABLET PO SCH (21:00)
[2022-02-20 07:01] VITALS: TEMP 97.6
[2022-02-20] MEDS: Acetaminophen 325 MG TABLET PO PRN (07:36)
[2022-02-20] MEDS ORDERED: Venlafaxine XR (24 HR) 150 MG CAP.ER.24H PO SCH (09:00)
[2022-02-20] MEDS ORDERED: ARIPiprazole 10 MG TABLET PO SCH (09:00)
[2022-02-20] MEDS ORDERED: Topiramate 25 MG TABLET PO SCH (09:00)
[2022-02-20] MEDS ORDERED: BuPROPion XL (24 HR) 150 MG TABLET PO SCH (09:00)
[2022-02-20 11:04] VITALS: BP 97/63; PULSE 67
[2022-02-20 11:43] VITALS: O2SAT 94
== END 2022-02-20 15:00 | disposition home or self-care (01) ==
LOC: EMEROOARM 19:21 → 4WAOSI 19:21 → SUATTDRO 02-19 00:30 → 4WAOSI 02-19 02:09
PROVIDERS: ADMIT Family Medicine; ATTEND Internal Medicine